=== PATIENT | female | born 1945 | race Caucasian/White ===

== ENCOUNTER → 2016-11-21 | Outpatient (CLI) | payer OTHER, MEDICARE | LOC: BMCIMAGING 14:40 | PROVIDERS: ATTEND Internal Medicine | DX: Z12.31 Encounter for screening mammogram for malignant neoplasm of breast (principal) | CPT/HCPCS: G0202 ==

== ENCOUNTER → 2017-12-31 | Outpatient (CLI) | payer OTHER, MEDICARE | LOC: FIMAGING 12:43 | PROVIDERS: ATTEND Internal Medicine | DX: Z13.820 Encounter for screening for osteoporosis (principal); M81.0 Age-related osteoporosis without current pathological fracture; Z78.0 Asymptomatic menopausal state ==

== ENCOUNTER → 2017-12-31 | Outpatient (CLI) | payer OTHER, MEDICARE | LOC: BMCIMAGING 07:53 | PROVIDERS: ATTEND Internal Medicine | DX: Z12.31 Encounter for screening mammogram for malignant neoplasm of breast (principal) ==

== ENCOUNTER 2018-10-04 15:47 | Inpatient (IN) | payer OTHER, MEDICARE ==
[~2018-10-04 15:47] MED LIST: IOPAMIDOL (ISOVUE-300) 100 ML BTL ONE
[2018-10-04] MEDS ORDERED: NS 1,000 ML IV ONE ×2 (16:09→16:43)
[2018-10-04] MEDS ORDERED: NS 1,000 ML IV SCH ×2 (16:45→17:45)
--- NOTE | 2018-10-04 16:45 | PDCONSULT ---
[facility] [employer] Note: #[id number] Saji Hilton MD, FACS
[2018-10-04 16:52] LABS: PLATELET COUNT 424 10^3/uL (150-400)
[2018-10-04] MEDS ORDERED: cefOXitin SODIUM 2 GM in NS 100 ML IV ONE (16:52)
[2018-10-04 17:00] LABS: PROTIME(PATIENT) 12.8 SEC (12.0-15.0)
[2018-10-04] MEDS ORDERED: ONDANSETRON 4 MG/2 ML VIAL ONE (17:10)
[2018-10-04] MEDS ORDERED: LIDOCAINE 1% 300 MG/30 ML SDV ONE (17:24)
[2018-10-04] MEDS ORDERED: ALTEPLASE 2 MG VIAL IVP PRN (17:32)
[2018-10-04] MEDS ORDERED: MIDAZOLAM 2 MG/2 ML VIAL IVP PRN (17:32)
[2018-10-04] MEDS ORDERED: PROTAMINE SULFATE 50 MG/5 ML VIAL IVP PRN (17:32)
[2018-10-04] MEDS ORDERED: fentaNYL 100 MCG/2 ML INJ IVP PRN (17:32)
[2018-10-04] MEDS ORDERED: NALOXONE HCL 0.4 MG/ML INJ IVP PRN (17:32)
[2018-10-04] MEDS ORDERED: FLUMAZENIL 0.5 MG/5 ML MDV IVP PRN (17:32)
[2018-10-04] MEDS ORDERED: MEPERIDINE 25 MG/ML SYR IVP PRN (17:32)
[2018-10-04] MEDS ORDERED: GLUCAGON HCL 1 MG VIAL IVP PRN (17:32)
[2018-10-04] MEDS ORDERED: ceFAZolin 2 GM/DEXTROSE 100 ML IV ONE (17:32)
[2018-10-04] MEDS ORDERED: HEPARIN 10,000 UNIT/10 ML MDV (1,000 UNIT/ML) IVP PRN (17:32)
[2018-10-04] MEDS ORDERED: NALOXONE HCL 0.4 MG/ML INJ ONE (17:56)
[2018-10-04] MEDS ORDERED: fentaNYL 100 MCG/2 ML INJ ONE (17:56)
--- NOTE | 2018-10-04 18:01 | PDPROPOC ---
Sedation Plan of Care Sedation Plan of Care: vital signs stable, mental status noted, patient educated of risks, benefits, alternatives, patient can tolerate sedation ASA Classification: ASA 3 Planned drugs: fentanyl, midazolam Mallampati Score: Class 2 Mallampati Reference Image: Patient passed 3-3-2 rule?: Yes
--- NOTE | 2018-10-04 18:02 | PDHPUP ---
History & Physical Update H&P update statement: This history and physical update is based on an assessment of the patient which was completed after admission or registration (within 24 hours), but prior to the surgery/procedure. Abscess drainage for complicated diverticulitis H&P update: H&P reviewed & patient examined, no change in patient's condition since H&P completed
[2018-10-04] MEDS ORDERED: traMADol 50 MG TAB PO PRN (18:28)
--- NOTE | 2018-10-04 18:43 | GCON ---
[f rep st] CONSULTATION SURGICAL CONSULTATION DATE OF CONSULTATION: 10/04/2018 REFERRING PHYSICIAN: Charlie Correa MD CHIEF COMPLAINT: Abdominal pain. 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 She was seen yesterday in the clinic by Dr. Víctor Sutherland, who ordere d a CT scan which was performed earlier today. This showed diverticulitis with a peridiverticular ab scess, and surgical consultation was requested. The patient reports no fever. She has had no emesis , diarrhea, melena, hematochezia. She has had known diverticula since her last colonoscopy, but has never had diverticulitis before. The patient has not required narcotic analgesics, and is accompanie d by her sister who is at the bedside. PAST MEDICAL HISTORY: Significant for prior open cholecystectomy, tonsillectomy. She has no known d rug allergies. She takes no medications on a regular basis. She is a former smoker. Quit smoking 1977. Denies significant alcohol use. SOCIAL HISTORY: Patient is a retired nurse. She is accompanied by her sister, FAMILY HISTORY: Noncontributory. REVIEW OF SYSTEMS: Pertinent negatives per history of present illness. PHYSICAL EXAMINATION: VITAL SIGNS: Temperature is 37, blood pressure 132/77, heart rate is 97, resp iratory rate is 18, O2 saturation is 93% on room air. GENERAL: The patient is a pleasant woman who appears in mild distress. HEENT: There is no scleral icterus. NECK: Supple without adenopathy. T rachea is midline. LUNGS: Clear to auscultation. HEART: Regular in rate and rhythm. ABDOMEN: So ft with hypoactive bowel sounds. There is focal tenderness in the left lower quadrant with mild guar ding. There is no rebound tenderness. No palpable mass. No anterior abdominal wall hernia. There is mild left flank tenderness. PELVIC AND RECTAL: Were not repeated. EXTREMITIES: Warm and dry wi thout edema. LABORATORY STUDIES: WBC is 15.1, hemoglobin 12.5, hematocrit 36.6, platelets are 424,000. PT is 12. 8, INR 1.0, PTT 35. Sodium 133, potassium 4.2, chloride 100, bicarb 24, BUN 10, creatinine 0.6, gluc ose 108, calcium 9, bilirubin 0.2, AST 16, ALT 32, alkaline phosphatase 150. Venous lactate is 0.9. CT scan was reviewed with the patient, shows post cholecystectomy changes with mild dilatation of the common bile duct. Liver otherwise appears normal. The patient has moderate diverticulosis with an area of inflammation in the distal sigmoid colon adjacent to an abscess that is walled off in the pel vis near the sacrococcygeal junction, measuring approximately 4.5 cm in maximum diameter. This is ac cessible through a left transgluteal approach. IMPRESSION: Diverticulitis with localized perforation and abscess formation. No evidence of periton itis. RECOMMENDATIONS: Recommended percutaneous drainage with broad-spectrum antibiotics. Patient has rec eived 2 g of Mefoxin, and will continue pending cultures and sensitivities. The patient will be admi tted to the hospitalist service with surgical consultation, but is unlikely that this episode will re quire surgical intervention. I discussed the findings with the patient and her sister, and reviewed her images with her on [facility] P[facility]. /[id number]/MODL
--- NOTE | 2018-10-04 19:15 | PDRADPN ---
Radiology Procedure Note Date of Procedure: 10/04/18 Radiologist: Cain Orourke Anesthesia: IV Sedation Pre-op Diagnosis: Diverticulitis Post-op Diagnosis: Diverticulitis Indication: Perforated sigmoid diverticulitis with abscess formation Procedure: CT guided drain placement Finding(s): 8 Fr drain placement into abscess, 15 mL light brown, purulent fluid sent to micro for culture. Inf/Abcess present in the surg proc area at time of surgery?: Yes Depth: Deep Incisional (Fascial) (Pericolonic) Drains: Arsenio Ramos
[2018-10-04] MEDS ORDERED: HYDROmorphONE/DILAUDID 1 MG/ML INJ IVP PRN (21:12)
[2018-10-04] MEDS ORDERED: KETOROLAC 15 MG/1 ML SDV IVP ONE (21:13)
--- NOTE | 2018-10-04 21:53 | HOSPPROG ---
Hospitalist Progress Note Objective: Vital Signs Temp Pulse Resp BP Pulse Ox 36.8 C 84 16 126/77 H 93 10/04/18 21:42 10/04/18 21:42 10/04/18 21:42 10/04/18 21:42 10/04/18 21:42 Microbiology 10/04/18 18:43 Gram Stain - Final Pelvis - Aspirate 10/03/18 10/04/18 10/05/18 05:59 05:59 05:59 Intake Total 1120 Balance 1120 PT 12.8 SEC (12.0-15.0) 10/04/18 16:10 INR 1.00 (0.83-1.16) 10/04/18 16:10
[2018-10-04] MEDS: ERTAPENEM 1 GM in NS 100 ML IV SCH (22:31)
[2018-10-04] MEDS: LORazepam 1 MG TAB PO PRN (22:31)
--- NOTE | 2018-10-04 22:35 | PDGENHP ---
History and Physical - Chief Complaint abdominal pain - History of Present Illness 73 yo female presents to ED with 9 days of abdominal pain. She reports onset 9 days ago felt like crampy, gas-like pain in her LLQ. She denies blood in her stool or diarrhea. She has had some nausea, no vomiting. She denies fevers, chills or rigors. No CP or SOB. She saw her PCP and ultimately an outpt CT was performed, which revealed diverticulitis with 4.5 cm abscess and suspected microperforation. Surgery consult was obtained and she was sent to IR for drainage of the abscess. Blood cultures were drawn. She received 2 g IV Cefoxitin and is admitted for further management. History Information - Allergies/Home Medication List Allergies/Adverse Reactions: No Known Allergies Allergy (Verified 10/04/18 17:25) Home Medications: Herbals/Supplements -Info Only 1 ea PO DAILY 10/04/18 [Last Taken 10/04/18] Ibuprofen [Motrin (*)] 200 - 600 mg PO DAILY PRN 10/04/18 [Last Taken 10/04/18 08:30 400 mg] traMADol HCL [Tramadol HCl] 100 mg PO DAILY PRN 10/04/18 [Last Taken 10/04/18 08 :30] I have personally reviewed and updated: family history, medical history, social history, surgical history - Social History Smoking Status: Former smoker Review of Systems Review of Systems: ROS: 10pt was reviewed & negative except for what was stated in HPI & below Physical Exam Physical Exam: Temp Pulse Resp BP Pulse Ox 36.8 C 84 16 126/77 H 93 10/04/18 21:42 10/04/18 21:42 10/04/18 21:42 10/04/18 21:42 10/04/18 21:42 Constitutional: no apparent distress Eyes: PERRL Ears, Nose, Mouth, Throat: moist mucous membranes Cardiovascular: regular rate and rhythym Respiratory: no respiratory distress, clear to auscultation Gastrointestinal: normoactive bowel sounds, other (soft, minimal distention, mild TTP LLQ, no r/r/g) Skin: warm Musculoskeletal: full muscle strength Neurologic: AAOx3 Psychiatric: interacting appropriately Lab Data & Imaging Review 10/04/18 16:10 10/04/18 16:10 WBC 15.16 10^3/uL (3.80-9.50) H 10/04/18 16:10 RBC 4.33 10^6/uL (4.18-5.33) 10/04/18 16:10 Hgb 12.5 g/dL (12.6-16.3) L 10/04/18 16:10 Hct 36.6 % (38.0-47.0) L 10/04/18 16:10 MCV 84.5 fL (81.5-99.8) 10/04/18 16:10 MCH 28.9 pg (27.9-34.1) 10/04/18 16:10 MCHC 34.2 g/dL (32.4-36.7) 10/04/18 16:10 RDW 13.2 % (11.5-15.2) 10/04/18 16:10 Plt Count 424 10^3/uL (150-400) H 10/04/18 16:10 MPV 9.6 fL (8.7-11.7) 10/04/18 16:10 Neut % (Auto) 74.3 % (39.3-74.2) H 10/04/18 16:10 Lymph % (Auto) 16.2 % (15.0-45.0) 10/04/18 16:10 [place] % (Auto) 7.4 % (4.5-13.0) 10/04/18 16:10 Eos % (Auto) 1.2 % (0.6-7.6) 10/04/18 16:10 Baso % (Auto) 0.6 % (0.3-1.7) 10/04/18 16:10 Nucleat RBC Rel Count 0.0 % (0.0-0.2) 10/04/18 16:10 Absolute Neuts (auto) 11.27 10^3/uL (1.70-6.50) H 10/04/18 16:10 Absolute Lymphs (auto) 2.46 10^3/uL (1.00-3.00) 10/04/18 16:10 Absolute Monos (auto) 1.12 10^3/uL (0.30-0.80) H 10/04/18 16:10 Absolute Eos (auto) 0.18 10^3/uL (0.03-0.40) 10/04/18 16:10 Absolute Basos (auto) 0.09 10^3/uL (0.02-0.10) 10/04/18 16:10 Absolute Nucleated RBC 0.00 10^3/uL (0-0.01) 10/04/18 16:10 Immature Gran % 0.3 % (0.0-1.1) 10/04/18 16:10 Immature Gran # 0.04 10^3/uL (0.00-0.10) 10/04/18 16:10 PT 12.8 SEC (12.0-15.0) 10/04/18 16:10 INR 1.00 (0.83-1.16) 10/04/18 16:10 APTT 35.3 SEC (23.0-38.0) 10/04/18 16:10 VBG Lactic Acid 0.9 mmol/L (0.7-2.1) 10/04/18 17:43 Sodium 133 mEq/L (135-145) L 10/04/18 16:10 Potassium 4.2 mEq/L (3.5-5.2) 10/04/18 16:10 Chloride 100 mEq/L (97-110) 10/04/18 16:10 Carbon Dioxide 24 mEq/l (22-31) 10/04/18 16:10 Anion Gap 9 mEq/L (6-14) 10/04/18 16:10 BUN 10 mg/dL (7-23) 10/04/18 16:10 Creatinine 0.6 mg/dL (0.6-1.0) 10/04/18 16:10 Estimated GFR > 60 10/04/18 16:10 Glucose 108 mg/dL (70-100) H 10/04/18 16:10 Calcium 9.0 mg/dL (8.5-10.4) 10/04/18 16:10 Total Bilirubin 0.2 mg/dL (0.1-1.4) 10/04/18 16:10 AST 16 IU/L (14-46) 10/04/18 16:10 ALT 32 IU/L (9-52) 10/04/18 16:10 Alkaline Phosphatase 150 IU/L (38-126) H 10/04/18 16:10 Total Protein 6.5 g/dL (6.3-8.2) 10/04/18 16:10 Albumin 3.6 g/dL (3.5-5.0) 10/04/18 16:10 Assessment & Plan Assessment: Diverticulitis with microperforation and abscess formation - s/p IR drainage of 4.5 cm abscess, gram stain is polymicrobial. BCx's pending. Discussed with Dr. Hilton. -IV Ertapenem, tailor pending Cx data -surgery following, hopefully can manage non-operatively -pain control: morphine not effective, will try a dose of Toradol and change morphine to dilaudid DVT PPLX - Lovenox Full code Dispo - admit to inpt, anticipate >48 hrs hospitalization for ongoing management of complicated diverticulitis
[2018-10-05 05:34] LABS: PLATELET COUNT 397 10^3/uL (150-400)
[2018-10-05] MEDS: KETOROLAC 30 MG/1 ML SDV IVP PRN ×3 (08:52→22:17)
[2018-10-05] MEDS: ERTAPENEM 1 GM in NS 100 ML IV SCH (08:55)
--- NOTE | 2018-10-05 09:39 | SOAPPROG ---
SOAP Progress Note Assessment/Plan: Assessment: Plan: Subjective: feeling better, eating solid food. no bm pe abd soft drain with serosang slightly ppurulent fluid- no obvius enteric leak. afebrile, wbc 13 assess: diverticulitis with abscess tx'd with trans gluteal drainage catheter recc: continue iv antibiotics until wbc normal. Objective: Vital Signs Temp Pulse Resp BP Pulse Ox 36.9 C 77 16 124/56 H 94 10/05/18 08:00 10/05/18 08:00 10/05/18 08:00 10/05/18 08:00 10/05/18 08:00 Microbiology 10/04/18 18:43 Gram Stain - Final Pelvis - Aspirate Laboratory Results 10/05/18 05:07 10/05/18 05:07 10/04/18 10/05/18 10/06/18 05:59 05:59 05:59 Intake Total 1870 Output Total 935 Balance 935 PT 12.8 SEC (12.0-15.0) 10/04/18 16:10 INR 1.00 (0.83-1.16) 10/04/18 16:10 ICD10 Worksheet Patient Problems: Problems Problem Status Onset Diverticulitis large intestine w/o perforation or abscess w/o bleeding Acute Diverticulitis large intestine w/o perforation or abscess w/o bleeding Acute - ICD10 Problem Qualifiers (1) Diverticulitis large intestine w/o perforation or abscess w/o bleeding (2) Diverticulitis large intestine w/o perforation or abscess w/o bleeding
[2018-10-05] MEDS: HYDROCODONE/APAP 5/325 TAB PO PRN (11:51)
--- NOTE | 2018-10-05 12:52 | ASMTCMCOM ---
CM Note CM Note Notes: Reviewed chart, pt admitted by MD following a scan that revealed diverticulitis and an abscess that needs to be drained. Pt being seen by ID She is otherwise independent and will dc home when medically stable. CM available for any changes. DC Plan: Independent Date Signed: 10/05/2018 12:51 PM Electronically Signed By:Chana Cruz RN
--- NOTE | 2018-10-05 13:03 | GCON ---
[f rep st] CONSULTATION INFECTIOUS DISEASE CONSULTATION DATE OF CONSULTATION: 10/05/2018 REFERRING PHYSICIAN: Farhana Mai NP REASON FOR CONSULTATION: Diverticular abscess. HISTORY OF PRESENT ILLNESS: Patient is a 73-year-old female with a past medical history of diverticu losis, who I am asked to see in consultation for a diverticular abscess. The patient describes devel oping crampy abdominal pain with bowel movements approximately 10 days ago. This was subsequently fo llowed by sense of not feeling well and smaller bowel movements. She did not have fevers, chills, or night sweats. The crampy abdominal pain persisted, ultimately prompting a CT scan of the abdomen an d pelvis. CT revealed a 3.7 x 2.3 x 4.5 cm abscess adjacent to the rectosigmoid junction. A small a mount of air was noted raising question of microperforation. Patient subsequently underwent CT-guide d drainage of the abscess by a transgluteal approach with removal of 15 mL of brown, purulent fluid. The patient's drain has remained in place with ongoing output of purulent-appearing material. Kamala degroot has been treated empirically with ertapenem. Gram stain of the abscess collection shows 2+ white blood cells, 2+ gram-positive rods, 1+ gram-negative rods, and 4+ GPCs in clusters. Culture is pendi ng as are blood cultures. Patient does not describe any previous episodes of diverticulitis. Last a ntibiotic exposure was in April for bronchitis. Treatment regimen is unclear. Given the above fi ndings, I am now asked to assist in her ongoing management. PAST MEDICAL HISTORY: Diverticulosis. PAST SURGICAL HISTORY: Cholecystectomy, tonsillectomy. CURRENT MEDICATIONS: Ertapenem 1 g IV daily, Lovenox 40 mg subcutaneous daily, Toradol as needed, Ul tram as needed. ALLERGIES: No known drug allergies. SOCIAL HISTORY: Patient quit smoking many years ago. Social alcohol intake. Anticipated upcoming t ravel to [place] in approximately 10 days' time. FAMILY HISTORY: Brother recently diagnosed with diverticulitis. Parents of old age. REVIEW OF SYSTEMS: Outside that noted in the HPI, remainder of a 10-system review is unremarkable. Patient does not note any passage of air or fecal material with urination. PHYSICAL EXAMINATION: VITAL SIGNS: Temperature 36.6, heart rate 64, respiratory rate 16, blood pres sure 185/102. GENERAL: Patient is well nourished, well developed, in no acute distress. She appear s nontoxic. HEENT: There is no scleral icterus, conjunctival injection, or conjunctival petechiae. The oropharynx shows moist mucous membranes with dentition in good repair. No sinus tenderness. No nasal discharge. NECK: Supple without palpable lymphadenopathy or thyromegaly. CHEST: Clear to a uscultation bilaterally without adventitious sounds. Respiratory effort is normal. CARDIOVASCULAR: Regular rate and rhythm without murmurs, gallops, or rubs. ABDOMEN: Soft, nontender, nondistended. Bowel sounds are hypoactive. FRANKY bulb shows seropurulent material. MUSCULOSKELETAL: No cyanosis, clubbing, or edema. SKIN: No stigmata of endocarditis. Skin is warm and dry to touch. NEUROLOGIC: Patient is alert and interacts appropriately with examiner. Cranial nerves 2 through 12 are grossl y intact. Sensation is grossly intact. LYMPHATICS: No cervical or supraclavicular nodes. LABORATORY DATA: White blood cell count 13.1, hematocrit 34.9, platelets 397, neutrophils 76%. Seru m creatinine is 0.6, AST 16, ALT 32, bilirubin 0.2, alkaline phosphatase 150, albumin 3.6. Blood cul tures x2 pending. Gram stain of diverticular abscess as outlined above. CT scan as outlined above w [facility] was reviewed and interpreted by me today. IMPRESSION: Diverticulitis with concomitant diverticular abscess status post percutaneous drainage: Gram stain of the abscess material shows polymicrobial simon which is typical for diverticular absce ss. GPCs in clusters were noted raising issue of Staphylococcus aureus, which would be atypical for diverticular abscess. No signs or symptoms of accompanying sepsis. Favor transitioning ertapenem to ceftriaxone and metronidazole to reduce carbapenem resistance pressures with continued activity agai nst typical enteric simon. Ultimately, antibiotic regimen will be defined by culture data and suscep tibility profiles as available. RECOMMENDATIONS: 1. Ceftriaxone 1 g IV daily. 2. Flagyl 500 mg IV q.8 hours. 3. Discontinue ertapenem. 4. Follow drain output over time. 5. Await culture and susceptibility data with adjustment of antibiotics accordingly as available. Thank you for this consultation. We will continue to follow the patient with you. /[id number]/MODL
--- NOTE | 2018-10-05 13:34 | PDMN ---
Medical Necessity Medical necessity: Pt meets IP criteria per [employer] & MCG M-150; est los >2 mn for eval/tx of diverticulitis w/abscess & suspected microperforation; admit for further monitoring, Surgery consult, pain management & IV abx; per H&P & order
--- NOTE | 2018-10-05 15:30 | HOSPPROG ---
Hospitalist Progress Note Assessment/Plan: 73 yo female presents to ED with 9 days of abdominal pain. Symptoms started approximately 9 days ago in LLQ. She had some associated nausea. CT was performed, which revealed diverticulitis with 4.5 cm abscess and suspected microperforation. First encounter, chart reviewed. *Diverticulitis with microperforation and abscess formation - s/p IR drainage of 4.5 cm abscess, gram stain is polymicrobial. (drain in place in transgluteal area) -on Flagyl and Ceftriaxone -appreciate Dr Nicolas -pain control w [place], Toradol *Pain due to the placement of the drain -having no abdominal pain *leukocytosis -due to the above *constipation -no bowel protocol at this time due to the above -will defer to surgery team *DVT PPLX - Lovenox *plan: supportive care, tolerating clear liquids without difficulty; wants to eat (will defer to surgical team as to when diet can be advanced). Subjective: Michael is feeling fine except for discomfort from the drain. Objective: Vital Signs Temp Pulse Resp BP Pulse Ox 36.6 C 64 16 185/102 H 95 10/05/18 11:56 10/05/18 11:56 10/05/18 11:56 10/05/18 11:56 10/05/18 11:56 Microbiology 10/04/18 18:43 Gram Stain - Final Pelvis - Aspirate Laboratory Results 10/05/18 05:07 10/05/18 05:07 10/04/18 10/05/18 10/06/18 05:59 05:59 05:59 Intake Total 750 Output Total 935 Balance -185 PT 12.8 SEC (12.0-15.0) 10/04/18 16:10 INR 1.00 (0.83-1.16) 10/04/18 16:10 - Physical Exam Constitutional: uncomfortable Eyes: PERRL Ears, Nose, Mouth, Throat: hearing normal Cardiovascular: regular rate and rhythym Respiratory: no respiratory distress Gastrointestinal: normoactive bowel sounds, soft, non-tender abdomen Skin: warm, other (has a FRANKY drain from right gluteal area w purulent brownish drainage) Musculoskeletal: full muscle strength Neurologic: AAOx3 Psychiatric: interacting appropriately ICD10 Worksheet Patient Problems: Problems Problem Status Onset Diverticulitis large intestine w/o perforation or abscess w/o bleeding Acute Diverticulitis large intestine w/o perforation or abscess w/o bleeding Acute
[2018-10-05] MEDS: ENOXAPARIN 40 MG/0.4 ML SYR SC SCH (16:29)
[2018-10-05] MEDS: LORazepam 1 MG TAB PO PRN (22:17)
[2018-10-06] MEDS: KETOROLAC 30 MG/1 ML SDV IVP PRN ×3 (08:07→22:57)
[2018-10-06] MEDS: ERTAPENEM 1 GM in NS 100 ML IV SCH (08:31)
--- NOTE | 2018-10-06 08:31 | SOAPPROG ---
SOPAULINE Progress Note Assessment/Plan: Assessment/Plan: 73 Y F diverticulitis s/p perc drainage of abscess. Doing well. Afebrile. WBC's trending down (not done today). Pain improved. Continue IV abx. Continue clear liquid diet. Continue drain--still with mixed purulence. Seen with Dr. Arredondo. Continue inpatient for IV abx and observation. D/c to home possible in next 1-2 days with drain in place, abx (PO?), clear vs low residue diet, and outpatient f/u. Suspect will eventually need colectomy, but hopefully not urgently. S: just had a BM. O: alert, ambulating around the room easily no wob drain with pale brownish purulent fluid 10/06/18 08:27 Objective: Vital Signs Temp Pulse Resp BP Pulse Ox 36.9 C 87 16 132/79 H 92 10/06/18 07:31 10/06/18 07:31 10/06/18 07:31 10/06/18 07:31 10/06/18 07:31 Microbiology 10/04/18 18:43 Gram Stain - Final Pelvis - Aspirate Laboratory Results 10/05/18 05:07 10/05/18 05:07 10/05/18 10/06/18 10/07/18 05:59 05:59 05:59 Intake Total 750 400 Output Total 935 45 Balance -185 355 PT 12.8 SEC (12.0-15.0) 10/04/18 16:10 INR 1.00 (0.83-1.16) 10/04/18 16:10 ICD10 Worksheet Patient Problems: Problems Problem Status Onset Diverticulitis large intestine w/o perforation or abscess w/o bleeding Acute Diverticulitis large intestine w/o perforation or abscess w/o bleeding Acute
--- NOTE | 2018-10-06 11:37 | HOSPPROG ---
Hospitalist Progress Note Assessment/Plan: 73 yo female presents to ED with 9 days of abdominal pain. CT revealed diverticulitis with 4.5 cm abscess and suspected microperforation. *Diverticulitis with microperforation and abscess formation - s/p IR drainage of 4.5 cm abscess, Cx polymicrobial: E coli, Morganella, strep intermed -changed back to Ertapenem per ID, tailor once sensitivities available -pain control -taking clears, will decrease NS to 75/hr, advance diet per surgery -drain continues to have significant output -discussed with surgery, might d/c with drain and they are considering if she' ll need surgical resection at some point *leukocytosis - 2/2 above, trending down -follow *constipation - had BM today, which was relatively normal *DVT PPLX - Lovenox *dispo - cont inpt Subjective: Pt feels better today. Tolerating clears. No fevers/chills. Had a BM this am. No N/V. Drain continues to have output. Pain controlled. Objective: Vital Signs Temp Pulse Resp BP Pulse Ox 36.9 C 87 16 132/79 H 92 10/06/18 07:31 10/06/18 07:31 10/06/18 07:31 10/06/18 07:31 10/06/18 07:31 Microbiology 10/04/18 18:43 Gram Stain - Final Pelvis - Aspirate Laboratory Results 10/05/18 05:07 10/05/18 05:07 10/05/18 10/06/18 10/07/18 05:59 05:59 05:59 Intake Total 750 400 Output Total 935 45 Balance -185 355 PT 12.8 SEC (12.0-15.0) 10/04/18 16:10 INR 1.00 (0.83-1.16) 10/04/18 16:10 - Physical Exam Constitutional: no apparent distress Eyes: PERRL Ears, Nose, Mouth, Throat: moist mucous membranes Cardiovascular: regular rate and rhythym, no murmur, rub, or gallop Respiratory: no respiratory distress, clear to auscultation Gastrointestinal: normoactive bowel sounds, soft, non-tender abdomen Skin: warm Musculoskeletal: full muscle strength Neurologic: AAOx3 Psychiatric: interacting appropriately ICD10 Worksheet Patient Problems: Problems Problem Status Onset Diverticulitis large intestine w/o perforation or abscess w/o bleeding Acute Diverticulitis large intestine w/o perforation or abscess w/o bleeding Acute
--- NOTE | 2018-10-06 12:17 | ASMTCMCOM ---
CM Note CM Note Notes: CM discussed with JACOBO Cosby. Plan continues to discharge home independent when medically stable. CM to follow. D/C Plan: Independent. Date Signed: 10/06/2018 12:16 PM Electronically Signed By:Victorina Snider
[2018-10-06] MEDS: HYDROCODONE/APAP 5/325 TAB PO PRN (13:34)
--- NOTE | 2018-10-06 14:09 | PCMIDPN ---
Assessment/Plan: Assessment/Plan: * Diverticular abscess status post percutaneous drainage: Polymicrobial culture showing growth of Morganella, E coli, and Streptococcus intermedius. Have continued ertapenem given potential for Morganella to have Amp C mediated inducible beta lactamase with potential for cephalosporin failure. Await susceptibility profile on organism to determine if oral option such as fluoroquinolone combined with Augmentin feasible or if she will require course of IV ertapenem. Clinical and microbiologic findings as well as treatment plan including continued ertapenem discussed with patient today. 10/06/18 14:07 Subjective: Overall patient feels improved. No significant abdominal pain. Continues to have purulent output via FRANKY bulb. Objective: Vital Signs Temp Pulse Resp BP Pulse Ox 36.9 C 87 16 132/79 H 92 10/06/18 07:31 10/06/18 07:31 10/06/18 07:31 10/06/18 07:31 10/06/18 07:31 Microbiology 10/04/18 18:43 Gram Stain - Final Pelvis - Aspirate Laboratory Results 10/05/18 05:07 10/05/18 05:07 10/05/18 10/06/18 10/07/18 05:59 05:59 05:59 Intake Total 750 400 500 Output Total 935 45 400 Balance -185 355 100 Ertapenem # 3 Abscess cultures with growth of Morganella, E coli, and Streptococcus intermedius Blood cultures x2 no growth - Physical Exam General Appearance: alert, no apparent distress EENT: No scleral icterus, No thrush Respiratory: lungs clear, No respiratory distress Cardiac/Chest: regular rate, rhythm Abdomen: non-tender, soft, other (FRANKY bulb with brown purulent output), No distended ICD10 Worksheet Patient Problems: Problems Problem Status Onset Diverticulitis large intestine w/o perforation or abscess w/o bleeding Acute Diverticulitis large intestine w/o perforation or abscess w/o bleeding Acute
[2018-10-06] MEDS: ENOXAPARIN 40 MG/0.4 ML SYR SC SCH (15:33)
--- NOTE | 2018-10-06 18:50 | SOAPPROG ---
SOAP Progress Note Assessment/Plan: Assessment: seen with my pa alexandria/ pleases refer to her note 73 female doing well after drainage of divertic abscess afebrile abd soft, mildly tender/ tolerating clears/ + bm today Plan:continue iv abx/ will need colectomy at some point 10/06/18 18:48 Objective: Vital Signs Temp Pulse Resp BP Pulse Ox 36.8 C 67 16 125/71 H 94 10/06/18 16:00 10/06/18 16:00 10/06/18 16:00 10/06/18 16:00 10/06/18 16:00 Microbiology 10/04/18 18:43 Gram Stain - Final Pelvis - Aspirate Laboratory Results 10/05/18 05:07 10/05/18 05:07 10/05/18 10/06/18 10/07/18 05:59 05:59 05:59 Intake Total 306 929 7016 Output Total 935 45 715 Balance -478 284 3730 PT 12.8 SEC (12.0-15.0) 10/04/18 16:10 INR 1.00 (0.83-1.16) 10/04/18 16:10 ICD10 Worksheet Patient Problems: Problems Problem Status Onset Diverticulitis large intestine w/o perforation or abscess w/o bleeding Acute Diverticulitis large intestine w/o perforation or abscess w/o bleeding Acute
[2018-10-06] MEDS: LORazepam 1 MG TAB PO PRN (22:57)
[2018-10-07 05:22] LABS: PLATELET COUNT 434 10^3/uL (150-400)
[2018-10-07] MEDS: KETOROLAC 30 MG/1 ML SDV IVP PRN ×3 (06:12→22:17)
[2018-10-07] MEDS: ERTAPENEM 1 GM in NS 100 ML IV SCH (09:31)
--- NOTE | 2018-10-07 10:01 | SOAPPROG ---
SOPAULNIE Progress Note Assessment/Plan: Assessment/Plan: 73 Y F diverticulitis s/p perc drainage of abscess. Afebrile. WBC's normal today. Continue IV abx. Continue clear liquid diet. Continue drain--still with mixed purulence. Continue irrigating drain q shift. Discussed with RN. Plan for drainogram today. Seen with Dr. Arredondo. Continue inpatient for IV abx and observation. D/c to home possible in next 1-2 days with drain in place, abx (PO?), clear vs low residue diet, and outpatient f/u. Suspect will eventually need colectomy, but hopefully not urgently. S: Feels a little worse today, but can't put her finger on what's wrong. Pain at drain insertion site. O: Alert Afebrile RRR No increased WOB Abdomen: soft, nontender, nondistended. Drain with pale brownish purulent fluid 10/07/18 09:58 Objective: Vital Signs Temp Pulse Resp BP Pulse Ox 36.2 C 78 16 144/79 H 97 10/07/18 08:00 10/07/18 08:00 10/07/18 08:00 10/07/18 08:00 10/07/18 08:00 Microbiology 10/04/18 18:43 Gram Stain - Final Pelvis - Aspirate Laboratory Results 10/07/18 04:40 10/05/18 05:07 10/06/18 10/07/18 10/08/18 05:59 05:59 05:59 Intake Total 400 2325 Output Total 45 715 Balance 355 1610 PT 12.8 SEC (12.0-15.0) 10/04/18 16:10 INR 1.00 (0.83-1.16) 10/04/18 16:10 ICD10 Worksheet Patient Problems: Problems Problem Status Onset Diverticulitis large intestine w/o perforation or abscess w/o bleeding Acute Diverticulitis large intestine w/o perforation or abscess w/o bleeding Acute
[2018-10-07] MEDS: HYDROCODONE/APAP 5/325 TAB PO PRN ×2 (10:51→20:03)
[2018-10-07] MEDS: traMADol 50 MG TAB PO PRN (10:56)
[2018-10-07] MEDS ORDERED: IOPAMIDOL (ISOVUE-370) 150 ML BTL IV ONE (11:11)
--- NOTE | 2018-10-07 12:30 | HOSPPROG ---
Hospitalist Progress Note Assessment/Plan: 73 yo female presents to ED with 9 days of abdominal pain. Symptoms started approximately 9 days ago in [facility]. She had some associated nausea. CT was performed, which revealed diverticulitis with 4.5 cm abscess and suspected microperforation. *Diverticulitis with microperforation and abscess formation - s/p IR drainage of 4.5 cm abscess, gram stain is polymicrobial. (drain in place in transgluteal area) -on Ertapenem -fluoro done to make sure drain is not in the colon *Pain due to the placement of the drain -having no abdominal pain *leukocytosis -resolved *constipation -no bowel protocol at this time due to the above -will defer to surgery team *DVT PPLX - Lovenox *plan: supportive care, tolerating clear liquids without difficulty; if drain is still located in the abscess; will ask Dr Arredondo about letting her eat. Subjective: Michael is not feeling as well as she did yesterday, not having much of an appetite. Objective: Vital Signs Temp Pulse Resp BP Pulse Ox 36.2 C 78 16 144/79 H 97 10/07/18 08:00 10/07/18 08:00 10/07/18 08:00 10/07/18 08:00 10/07/18 08:00 Microbiology 10/04/18 18:43 Gram Stain - Final Pelvis - Aspirate Laboratory Results 10/07/18 04:40 10/05/18 05:07 10/06/18 10/07/18 10/08/18 05:59 05:59 05:59 Intake Total 400 2325 Output Total 45 715 Balance 355 1610 PT 12.8 SEC (12.0-15.0) 10/04/18 16:10 INR 1.00 (0.83-1.16) 10/04/18 16:10 - Physical Exam Constitutional: uncomfortable Eyes: PERRL Ears, Nose, Mouth, Throat: hearing normal Cardiovascular: regular rate and rhythym Respiratory: no respiratory distress Gastrointestinal: soft, non-tender abdomen, No normoactive bowel sounds ( hypoactive) Skin: warm Musculoskeletal: full muscle strength Neurologic: AAOx3 Psychiatric: interacting appropriately ICD10 Worksheet Patient Problems: Problems Problem Status Onset Diverticulitis large intestine w/o perforation or abscess w/o bleeding Acute Diverticulitis large intestine w/o perforation or abscess w/o bleeding Acute
--- NOTE | 2018-10-07 12:36 | PCMIDPN ---
Assessment/Plan: Assessment: Diverticulitis with abscess. Abscess growing Morganella, E coli and Streptococcus. Sensitivities show that the patient has an option to switch from IV ertapenem to oral Levaquin plus Augmentin upon discharge. At this point we will continue the ertapenem while she is inpatient. She continues to have a drain in the sigmoid abscess although that will be evaluated as to correct placement today with an abscessogram. Meanwhile clinically the patient is doing much better. White blood cell count has normalized. Plan: 1. Continue IV ertapenem 1 g daily. 2. Follow up on results of abscessogram. 10/07/18 12:34 Subjective: Patient is sitting up in a chair in her hospital room. She denies any new complaint. States that she is sore at the drain site in her buttock. Denies fevers or chills. Tolerating ertapenem without issue. Objective: Ertapenem # 2 Vital Signs Temp Pulse Resp BP Pulse Ox 36.2 C 78 16 144/79 H 97 10/07/18 08:00 10/07/18 08:00 10/07/18 08:00 10/07/18 08:00 10/07/18 08:00 Microbiology 10/04/18 18:43 Gram Stain - Final Pelvis - Aspirate Laboratory Results 10/07/18 04:40 10/05/18 05:07 10/06/18 10/07/18 10/08/18 05:59 05:59 05:59 Intake Total 400 2325 Output Total 45 715 Balance 355 1610 - Physical Exam General Appearance: WD/WN, alert, no apparent distress, non-toxic Respiratory: lungs clear, normal breath sounds, No respiratory distress Cardiac/Chest: regular rate, rhythm, No tachycardia Skin: normal color, warm/dry, No rash Neuro/Psych: alert, normal mood/affect, oriented x 3 ICD10 Worksheet Patient Problems: Problems Problem Status Onset Diverticulitis large intestine w/o perforation or abscess w/o bleeding Acute Diverticulitis large intestine w/o perforation or abscess w/o bleeding Acute
[2018-10-07] MEDS: ENOXAPARIN 40 MG/0.4 ML SYR SC SCH (17:23)
[2018-10-07] MEDS: LORazepam 1 MG TAB PO PRN (22:17)
--- NOTE | 2018-10-07 22:37 | SOAPPROG ---
SOAP Progress Note Assessment/Plan: Assessment: seen with my pa alexandria/ pleases refer to her note 73 female doing well after drainage of divertic abscess afebrile abd soft, mildly tender/ tolerating clears/ + bm today Plan:continue iv abx/ will need colectomy at some point 10/06/18 18:48 10/07/18 22:35 AFEBRILE/ VS STABLE/ DRAINAGE CLEARER/ ABD SOFT, NONTENDER/ UO OK SINOGRAM REVEALS CONNECTION TO RECTOSIGMOID SURGERY PROBABLY SOONER RATHER THAN LATER/ RISKS AND OPTIONS FULLY DISCUSSED Objective: Vital Signs Temp Pulse Resp BP Pulse Ox 37.2 C 75 18 142/70 H 95 10/07/18 22:15 10/07/18 22:15 10/07/18 22:15 10/07/18 22:15 10/07/18 22:15 Microbiology 10/04/18 18:43 Gram Stain - Final Pelvis - Aspirate Laboratory Results 10/07/18 04:40 10/05/18 05:07 10/06/18 10/07/18 10/08/18 05:59 05:59 05:59 Intake Total 400 2325 Output Total 45 715 20 Balance 355 1610 -20 PT 12.8 SEC (12.0-15.0) 10/04/18 16:10 INR 1.00 (0.83-1.16) 10/04/18 16:10 ICD10 Worksheet Patient Problems: Problems Problem Status Onset Diverticulitis large intestine w/o perforation or abscess w/o bleeding Acute Diverticulitis large intestine w/o perforation or abscess w/o bleeding Acute
[2018-10-08 08:07] VITALS: BP 156/74
[2018-10-08] MEDS: ERTAPENEM 1 GM in NS 100 ML IV SCH (08:10)
[2018-10-08] MEDS: KETOROLAC 30 MG/1 ML SDV IVP PRN (08:11)
--- NOTE | 2018-10-08 09:52 | SOAPPROG ---
SOPAULINE Progress Note Assessment/Plan: Assessment/Plan: 73 Y F diverticulitis s/p perc drainage of abscess. Doing well. Afebrile. WBC's trending down (not done today). Pain improved. Continue IV abx. Continue clear liquid diet. Continue drain--still with mixed purulence. Seen with Dr. Arredondo. Continue inpatient for IV abx and observation. D/c to home possible in next 1-2 days with drain in place, abx (PO?), clear vs low residue diet, and outpatient f/u. Suspect will eventually need colectomy, but hopefully not urgently. S: just had a BM. O: alert, ambulating around the room easily no wob drain with pale brownish purulent fluid 10/06/18 08:27 Objective: Vital Signs Temp Pulse Resp BP Pulse Ox 37.2 C 74 16 156/74 H 93 10/07/18 22:15 10/08/18 08:05 10/08/18 08:05 10/08/18 08:05 10/08/18 08:05 Microbiology 10/04/18 18:43 Gram Stain - Final Pelvis - Aspirate Laboratory Results 10/07/18 04:40 10/05/18 05:07 10/07/18 10/08/18 10/09/18 05:59 05:59 05:59 Intake Total 2325 Output Total 715 20 Balance 1610 -20 PT 12.8 SEC (12.0-15.0) 10/04/18 16:10 INR 1.00 (0.83-1.16) 10/04/18 16:10 ICD10 Worksheet Patient Problems: Problems Problem Status Onset Diverticulitis large intestine w/o perforation or abscess w/o bleeding Acute Diverticulitis large intestine w/o perforation or abscess w/o bleeding Acute
[2018-10-08] MEDS: HYDROCODONE/APAP 5/325 TAB PO PRN (10:17)
--- NOTE | 2018-10-08 10:21 | HOSPPROG ---
Hospitalist Progress Note Assessment/Plan: 73 yo female presents to ED with 9 days of abdominal pain She had some associated nausea. CT was performed, which revealed diverticulitis with 4.5 cm abscess and suspected microperforation. Diverticulitis with microperforation and abscess formation s/p IR drainage of 4.5 cm abscess, gram stain is polymicrobial. (drain in place in transgluteal area) Ertapenem residual communication between colon and abscess cavity- needs surgical resection likely home on cipro flagyl Pain due to the placement of the drain tolerable leukocytosis resolved constipation having liquid bm's DVT PPLX - Lovenox likley home today w close follow up and surgery next week Subjective: case d/w gregoria ibrahim, surgery PA. feels well Objective: Vital Signs Temp Pulse Resp BP Pulse Ox 37.2 C 74 16 156/74 H 93 10/07/18 22:15 10/08/18 08:05 10/08/18 08:05 10/08/18 08:05 10/08/18 08:05 Microbiology 10/04/18 18:43 Gram Stain - Final Pelvis - Aspirate Laboratory Results 10/07/18 04:40 10/05/18 05:07 10/07/18 10/08/18 10/09/18 05:59 05:59 05:59 Intake Total 2325 Output Total 715 20 Balance 1610 -20 PT 12.8 SEC (12.0-15.0) 10/04/18 16:10 INR 1.00 (0.83-1.16) 10/04/18 16:10 - Physical Exam Constitutional: no apparent distress, appears nourished Eyes: PERRL, anicteric sclera Ears, Nose, Mouth, Throat: moist mucous membranes, hearing normal Cardiovascular: regular rate and rhythym, no murmur, rub, or gallop Respiratory: no respiratory distress Gastrointestinal: other (bowel sounds hypoactive but present), No guarding, No rebound Genitourinary: no bladder fullness, No weiss in urethra Skin: warm, normal color Musculoskeletal: full muscle strength Neurologic: AAOx3 ICD10 Worksheet Patient Problems: Problems Problem Status Onset Diverticulitis large intestine w/o perforation or abscess w/o bleeding Acute Diverticulitis large intestine w/o perforation or abscess w/o bleeding Acute
--- NOTE | 2018-10-08 10:45 | SOAPPROG ---
SOAP Progress Note Assessment/Plan: Assessment/Plan: 73 Y F diverticulitis s/p perc drainage of abscess. Doing well. Afebrile. Pain improved. Flouro study shows communication of abscess cavity with colon. She most likely will need surgery. Since she is doing well, ok to send home on clear liquids with PO abx and follow up in our office on Th or Fri. Can plan for surgery then. Will need to flush her drain c 10-15 cc NS bid. Seen c Dr. Arredondo and discussed with medicine. S: feeling fine. O: alert, ambulating around the room easily no wob abd soft, mild tenderness drain with pale brownish purulent fluid 10/08/18 10:42 Objective: Vital Signs Temp Pulse Resp BP Pulse Ox 37.2 C 74 16 156/74 H 93 10/07/18 22:15 10/08/18 08:05 10/08/18 08:05 10/08/18 08:05 10/08/18 08:05 Microbiology 10/04/18 18:43 Gram Stain - Final Pelvis - Aspirate Laboratory Results 10/07/18 04:40 10/05/18 05:07 10/07/18 10/08/18 10/09/18 05:59 05:59 05:59 Intake Total 2325 Output Total 715 20 Balance 1610 -20 PT 12.8 SEC (12.0-15.0) 10/04/18 16:10 INR 1.00 (0.83-1.16) 10/04/18 16:10 ICD10 Worksheet Patient Problems: Problems Problem Status Onset Diverticulitis large intestine w/o perforation or abscess w/o bleeding Acute Diverticulitis large intestine w/o perforation or abscess w/o bleeding Acute
[2018-10-08] MEDS: traMADol 50 MG TAB PO PRN (13:08)
--- NOTE | 2018-10-08 13:30 | PCMIDPN ---
Assessment/Plan: # polymicrobial Sigmoid Diverticulitis and abscess s/p drainage. Cx with Eikenella, strep intermedius, e coli, Morganella, bacteroides. Corresponding blood cultures from 10/04/2018 are negative --To try to cover all pathogens orally: Levofloxacin 750mg PO daily x 7 days and Augmentin 875mg PO BID x7 days leading up to likely sigmoid resection. --I have some concerns about the tolerance of the regimen with clear liquid diet and patient to call our office and we can switch to IV ertapenem via PIV. Patient does not want PICC Discussed possible side effects of Levaquin, including photosensitivity and interaction with cations including calcium, zinc and magnesium and glucose disturbance. Patient is also advised to take with small amount food to minimize risk of nausea and avoid significant sun exposure by wearing hat, sunscreen. Levaquin and other antibiotics in this class have been associated with VERY RARE but disabling and potentially irreversible serious adverse reactions that have occurred together, including tendinitis and tendon rupture, peripheral neuropathy, and confusion. Discontinue levofloxacin immediately if you develop a serious reaction and call our office. Subjective: Never had abdominal pain. Liquid stool related to clear liquid diet. Feeling well and energetic today wanting to go home Objective: Vital Signs Temp Pulse Resp BP Pulse Ox 37.2 C 74 16 156/74 H 93 10/07/18 22:15 10/08/18 08:05 10/08/18 08:05 10/08/18 08:05 10/08/18 08:05 Microbiology 10/04/18 18:43 Gram Stain - Final Pelvis - Aspirate Laboratory Results 10/07/18 04:40 10/05/18 05:07 10/07/18 10/08/18 10/09/18 05:59 05:59 05:59 Intake Total 2325 Output Total 715 20 Balance 1610 -20 - Physical Exam General Appearance: alert, no apparent distress EENT: No scleral icterus Respiratory: lungs clear, No accessory muscle use Extremities: No pedal edema Abdomen: normal bowel sounds, non-tender, soft, other (Drain left posterior gluteus with serosanguineous fluid) Skin: No rash Neuro/Psych: alert, normal mood/affect, oriented x 3 - Time Spent With Patient Time Spent with Patient: greater than 35 minutes Time Spent with Patient: Greater than 35 minutes spent on this patients care, greater than 50% of time spent counseling, educating, and coordinating care regarding the above mentioned plan. ICD10 Worksheet Patient Problems: Problems Problem Status Onset Diverticulitis large intestine w/o perforation or abscess w/o bleeding Acute Diverticulitis large intestine w/o perforation or abscess w/o bleeding Acute
--- NOTE | 2018-10-08 14:01 | ASMTDCNOTE ---
Case Management Discharge Discharge Order Complete? Answers: Yes Patient to Obtain Answers: Independently Medications Transportation Arranged Answers: Family/Friends Discharge Comments Notes: CM met with patient. Patient states that she has a ride home and a way to obtain her prescriptions. Patient is being discharged with a tyrell drain. 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 RN provided extensive education around the tyrell drain. No therapies ordered. No CM needs noted at this time. Date Signed: 10/08/2018 02:00 PM Electronically Signed By:Maria R Freeman
--- NOTE | 2018-10-08 14:07 | ASMTLACE ---
ANTONIO Length of stay for Answers: 3 days current admission Comorbidities - select Answers: Other Notes: Diverticulitis with all that apply microperforation and abscess formation # of Emergency department Answers: 1-2 visits in the last 6 months Score: 5 Date Signed: 10/08/2018 02:06 PM Electronically Signed By:Maria R Freeman
--- NOTE | 2018-10-08 14:22 | GDS ---
[f rep st] DISCHARGE SUMMARY DISCHARGE DIAGNOSIS: Sigmoid diverticulitis with abscess and perforation. HOSPITAL COURSE: Please see admission history and physical by Dr. Ai Chinchilla. The patient presen jaxon with about a 10-day history of left lower quadrant pain. She had outpatient CT showing abscess w ith perforation. She underwent IR drain placement with admission. She was seen by surgery, who foll owed her. There was communication between the colon and the abscess cavity confirmed with fluoroscop ic study. The aspirate grew out Morganella, E coli, Streptococcus intermedius, and Eikenella. Her a ntibiotics have changed from ertapenem to Augmentin and ciprofloxacin, this because of the Eikenella being sensitive to Flagyl. She is discharged home with outpatient followup with Dr. Arredondo in his cli ward later this week and for probable surgical resection later on next week. 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 We reviewed the signs and symptoms for which she should return to the hospital. /[id number]/MODL
--- NOTE | 2018-10-08 14:57 | ASDISCHSUM ---
Discharge Information Plan Status:Home with No Needs Medically Cleared to Leave: Discharge Date: D/C Disposition:Home, Routine, Self-Care ADT D/C Disposition: Projected Discharge Date: Transportation at D/C:Family Discharge Delay Reason: Follow-Up Date: Discharge Slot: Final Diagnosis:sigmoid abscess, bowel perforation Placement Information Patient Contact Information Contact Name:CAMILLE Relationship:Sister Address:[address] City:[place] Alternate Phone: State/Zip Code:[place] [address] Email: Financial Information Financial Class:Medicare Primary Plan Desc:MEDICARE INPATIENT Primary Plan Number:[id number] Secondary Plan Desc:[employer]/MDR SUPPLEMENT Secondary Plan Number:[id number] Assessment Information LACE LACE Length of stay for Answers: 3 days current admission Comorbidities - select Answers: Other Notes: Diverticulitis with all that apply microperforation and abscess formation # of Emergency department Answers: 1-2 visits in the last 6 months Score: 5 Date Signed: 10/08/2018 02:06 PM Electronically Signed By:Maria R Freeman [facility] CM Progress Note CM Note CM Note Notes: Reviewed chart, pt admitted by MD following a scan that revealed diverticulitis and an abscess that needs to be drained. Pt being seen by ID She is otherwise independent and will dc home when medically stable. CM available for any changes. DC Plan: Independent Date Signed: 10/05/2018 12:51 PM Electronically Signed By:Chana Cruz RN [facility] CM Progress Note CM Note CM Note Notes: CM discussed with JACOBO Cosby. Plan continues to discharge home independent when medically stable. CM to follow. D/C Plan: Independent. Date Signed: 10/06/2018 12:16 PM Electronically Signed By:Victorina Snider Case Management Discharge Plan Note Case Management Discharge Discharge Order Complete? Answers: Yes Patient to Obtain Answers: Independently Medications Transportation Arranged Answers: Family/Friends Discharge Comments Notes: CM met with patient. Patient states that she has a ride home and a way to obtain her prescriptions. Patient is being discharged with a tyrell drain. 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 RN provided extensive education around the tyrell drain. No therapies ordered. No CM needs noted at this time. Date Signed: 10/08/2018 02:00 PM Electronically Signed By:Maria R Freeman Intervention Information Intervention Type:*Incorrect Registration Date of Service:10/04/2018 12:15 PM Patient Type:Observation Staff Member:JACOBO Mendoza Courtney Hours: Discipline: Severity: Comment: Intervention Type:*IM-Signed Date of Service:10/08/2018 02:14 PM Patient Type:Inpatient Staff Member:Olga Pelletier Hours: Discipline: Severity: Comment:
--- NOTE | 2018-10-11 11:03 | EDPHY ---
H & P Stated Complaint: Sent by Dr. Hilton Time Seen by Provider: 10/04/18 16:08 HPI/ROS: CHIEF COMPLAINT: Abdominal pain, intra-abdominal abscess HISTORY OF PRESENT ILLNESS: This is a 73-year-old female who developed abdominal pain 9-10 days ago. Somewhat mild discomfort but gradually worsening. Pain was described as crampy and felt like she needed to pass gas. Primarily located in the left lower quadrant. She had some nausea but no vomiting. Reports no fevers or chills. No other symptoms, no infectious symptomatology, no diarrhea, no chest pain or shortness of breath. Patient had a outpatient CAT scan performed today which demonstrated diverticulitis with a 4 cm abscess. Patient was referred to the emergency department to see Dr. Hilton. Dr. Hilton has evaluated her in the emergency department has made arrangements for IR to perform a percutaneous drainage of the abscess. REVIEW OF SYSTEMS: A comprehensive 10 system review of systems was reviewed and is otherwise negative aside from elements mentioned in the history of present illness and medical decision making. PAST MEDICAL HISTORY: Appendectomy, cholecystectomy. Reports prior colonoscopies were normal. SOCIAL HISTORY: Nonsmoker. VITAL SIGNS Reviewed by me. Afebrile. GENERAL: Pleasant female. No acute distress. Reports moderate right left lower quadrant gassy discomfort. HEENT: Atraumatic. Eyes: No icterus, no injection. Mouth: moist mucous membranes. No erythema or lesions. Neck: supple with no adenopathy. LUNGS: Clear to auscultation bilaterally, no wheezes, rhonchi or rales. CARDIAC: Regular rate and rhythm, no rubs, murmurs or gallops. ABDOMEN: Soft, mild tenderness suprapubic and left lower quadrant. No guarding or rebound appreciated. No distension. BACK: No CVA tenderness. EXTREMITIES: No trauma. No edema. Range of motion is normal throughout. NEURO: Alert and oriented, grossly nonfocal. SKIN: Warm and dry, no rash. PSYCHIATRIC: Normal mentation, no agitation. - Personal History Current Tetanus/Diphtheria Vaccine: Yes - Medical/Surgical History Hx Asthma: No Hx Chronic Respiratory Disease: No Hx Diabetes: No Hx Cardiac Disease: No Hx Renal Disease: No Hx Cirrhosis: No Hx Alcoholism: No Hx HIV/AIDS: No Hx Splenectomy or Spleen Trauma: No Other PMH: Marisa, Appy, OA, spinal stenosis,cataract surgery - Social History Smoking Status: Former smoker Constitutional: Initial Vital Signs Temperature (C) 37.0 C 10/04/18 15:54 Heart Rate 97 10/04/18 15:54 Respiratory Rate 18 10/04/18 15:54 Blood Pressure 132/77 H 10/04/18 15:54 O2 Sat (%) 93 10/04/18 15:54 O2 Delivery Mode Room Air Allergies/Adverse Reactions: No Known Allergies Allergy (Verified 10/04/18 17:25) Home Medications: Medication Instructions Recorded Herbals/Supplements -Info Only 1 ea PO DAILY 10/04/18 Ibuprofen [Motrin (*)] 200 - 600 mg PO DAILY PRN 10/04/18 traMADol HCL [Tramadol HCl] 100 mg PO DAILY PRN 10/04/18 Amoxicillin/Clavulanate Pot 875 mg PO BID #14 tab 10/08/18 [Augmentin 875 MG TAB (*)] Hydrocodone/APAP 5/325 [[place] 1 tab PO Q4HRS PRN #20 tab 10/08/18 5/325 (*)] levOFLOXACIN [Levofloxacin] 750 mg PO DAILY #7 tablet 10/08/18 Medical Decision Making ED Course/Re-evaluation: IV established. Labs sent. Blood culture sent. Morphine ordered by Dr. Hilton. Laboratory evaluation: White count 43234, normal lactic acid, normal renal functions and PT INR. Patient received cefoxitin [address] Hilton request. Patient will be admitted to the hospitalist service. As mentioned above, interventional radiology have been contacted by Dr. Hilton and will make arrangements for the patient to have a percutaneous drainage of the abscess. Differential Diagnosis: After obtaining the patient's history and performing an examination, differential diagnosis considered included but was not limited to diverticulitis , diverticular abscess, bowel obstruction, acute abdomen, intra-abdominal abscess, septicemia, volvulus. - Data Points Laboratory Results: Laboratory Results 10/04/18 16:10 10/04/18 16:10 Microbiology Results: MICROBIOLOGY 10/04/18 17:43 Blood Blood Culture - Final 10/04/18 17:43 Blood Blood Culture - Final Medications Given: Discontinued Medications Hydrocodone Bitart/Acetaminophen ([place] 5/325) 1 tab PO Q4HRS PRN PRN Reason: Pain, Moderate Able to Take PO Stop: 10/15/18 08:27 Last Admin: 10/08/18 10:17 Dose: 1 tab Enoxaparin Sodium (Lovenox) 40 mg SC DAILY@1600 MARJAN Stop: 04/03/19 15:59 Last Admin: 10/07/18 17:23 Dose: Not Given Fentanyl (Sublimaze) 0 mcg IVP ONCALL PRN PRN Reason: Per provider during procedure Stop: 10/04/18 18:32 Last Admin: 10/04/18 19:04 Dose: 200 mcg Sodium Chloride (Ns) 1,000 mls @ 3,000 mls/hr IV ONCE ONE Stop: 10/04/18 17:02 Last Admin: 10/04/18 16:56 Dose: 1,000 mls Sodium Chloride (Ns) 1,000 mls @ 0 mls/hr IV EDNOW ONE; Wide Open PRN Reason: Protocol Stop: 10/04/18 16:10 Last Admin: 10/04/18 22:01 Dose: Not Given Cefoxitin Sodium 2 gm/ Sodium (Chloride) 100 mls @ 200 mls/hr IV EDNOW ONE PRN Reason: Protocol Stop: 10/04/18 17:21 Last Admin: 10/04/18 17:45 Dose: 100 mls Sodium Chloride (Ns) 1,000 mls @ 30 mls/hr IV CONT MARJAN Stop: 04/02/19 17:44 Last Admin: 10/04/18 19:04 Dose: 200 mls Ertapenem 1 gm/ Sodium (Chloride) 100 mls @ 200 mls/hr IV DAILY MARJAN PRN Reason: Protocol Stop: 11/03/18 21:59 Last Admin: 10/05/18 08:55 Dose: 100 mls Ertapenem 1 gm/ Sodium (Chloride) 100 mls @ 200 mls/hr IV DAILY MARJAN PRN Reason: Protocol Stop: 11/05/18 08:59 Last Admin: 10/08/18 08:10 Dose: 100 mls Ketorolac Tromethamine (Toradol) 15 mg IVP ONCE ONE Stop: 10/04/18 21:14 Last Admin: 10/04/18 22:31 Dose: 15 mg Ketorolac Tromethamine (Toradol) 15 mg IVP Q6HRS PRN PRN Reason: Pain, Moderate Stop: 10/10/18 08:28 Last Admin: 10/08/18 08:11 Dose: 15 mg Lorazepam (Ativan) 1 mg PO HS PRN PRN Reason: Sleep/Insomnia Stop: 04/02/19 21:44 Last Admin: 10/07/18 22:17 Dose: 1 mg Morphine Sulfate (Morphine) 5 mg IVP Q1HR PRN PRN Reason: Pain, Severe Unable to Take PO Stop: 10/14/18 16:43 Last Admin: 10/04/18 21:06 Dose: 5 mg Tramadol HCl (Ultram) 100 mg PO DAILY PRN PRN Reason: Pain, Moderate Stop: 04/02/19 18:27 Last Admin: 10/05/18 06:30 Dose: 100 mg Tramadol HCl (Ultram) 50 mg PO Q6H PRN PRN Reason: Pain, Moderate Able to Take PO Stop: 04/02/19 18:27 Last Admin: 10/08/18 13:08 Dose: 50 mg Departure - Departure Disposition: [facility] Inpatient Acute Clinical Impression: Diverticular disease of intestine with perforation and abscess Abdominal pain Qualifiers: Abdominal location: left lower quadrant Qualified Code(s): R10.32 - Left lower quadrant pain Condition: Fair
== END 2018-10-08 15:14 | disposition home or self-care (01) | DRG 392 ==
LOC: OBSVTOIN 18:08 → F3E 19:38
PROVIDERS: ADMIT Hospitalist; ATTEND Hospitalist
PROC: 0D9N30Z Drainage of Sigmoid Colon with Drainage Device, Percutaneous Approach (ICD-10-PCS; principal; 2018-10-04)
DX: K57.20 Diverticulitis of large intestine with perforation and abscess without bleeding (principal); E86.9 Volume depletion, unspecified; B96.20 Unspecified Escherichia coli [E. coli] as the cause of diseases classified elsewhere; B95.4 Other streptococcus as the cause of diseases classified elsewhere; B96.89 Other specified bacterial agents as the cause of diseases classified elsewhere; Z87.891 Personal history of nicotine dependence; K59.00 Constipation, unspecified
CPT/HCPCS: J0694; J0696; J1335; J1650; J1885; J2270; J2310; J2405; J3010; Q9967

== ENCOUNTER → 2018-10-11 | Outpatient (CLI) | payer OTHER, MEDICARE ==
[~2018-10-11] MED LIST changes: -IOPAMIDOL (ISOVUE-300) 100 ML BTL ONE; +LIDOCAINE 1% 300 MG/30 ML SDV ONE
== END ==
LOC: FIMAGING 10:45
PROVIDERS: ATTEND Surgery
DX: K57.40 Diverticulitis of both small and large intestine with perforation and abscess without bleeding (principal)

== ENCOUNTER 2018-10-15 14:00 | Inpatient (IN) | payer OTHER, MEDICARE | END 2018-10-17 12:45 | disposition home or self-care (01) | LOC: F2N 14:00 → F3E 15:55 ==